=== PATIENT | female | born 1985 | race Caucasian/White ===

== ENCOUNTER 2017-10-05 01:36 | Emergency (ER) | payer SELFPAY ==
[~2017-10-05] VITALS: Ht 157.5 cm; Wt 72.3 kg
[2017-10-05] MEDS ORDERED: LIDOCAINE-MPF 2%, 2ML ONE ×2 (01:46→02:32)
[2017-10-05 03:57] VITALS: BP 118/78
== END 2017-10-05 03:59 | disposition home or self-care (01) ==
LOC: ED 03:20
DX: S06.0X9A Concussion with loss of consciousness of unspecified duration, initial encounter (principal); S63.282A Dislocation of proximal interphalangeal joint of right middle finger, initial encounter; V29.59XA Motorcycle passenger injured in collision with other motor vehicles in traffic accident, initial encounter; Y93.89 Activity, other specified; Y99.8 Other external cause status; Y92.410 Unspecified street and highway as the place of occurrence of the external cause
CPT/HCPCS: 26770; 70450; 99284